=== PATIENT | female | born 1990 | race Caucasian/White ===

== ENCOUNTER 2018-12-30 04:44 | Emergency (ER) | payer BC ==
[~2018-12-30] VITALS: Ht 167.6 cm; Wt 128.4 kg
--- NOTE | 2018-12-30 04:52 | NUR ---
Pt bib [id number] from [facility] (detox center) w c/o cough x 2 days. No respiratory distress noted. Respirations even + unlabored. Denies CP/SOB. Denies fever/chills. SA02 100% room air.
[2018-12-30] MEDS ORDERED: ALBUTEROL SULFATE 2.5 MG/3 ML NEBU NEB ONE (05:15)
[2018-12-30] MEDS ORDERED: BENZONATATE 100 MG CAPSULE PO ONE (05:15)
[2018-12-30] MEDS ORDERED: BENZONATATE 100 MG CAPSULE ONE (05:19)
[2018-12-30] MEDS ORDERED: ALBUTEROL SULFATE 2.5 MG/3 ML NEBU ONE (05:25)
--- NOTE | 2018-12-30 05:41 | NUR ---
Pt states she feels much better after breathing tx.
--- NOTE | 2018-12-30 05:53 | NUR ---
Patient discharged to home in stable conditon. Written and verbal after care instructions given. Patient verbalizes understanding of instructions. Pt left ER via [employer] back to detox center. All belongings w pt. VSS. NAD noted.
[2018-12-30 05:54] VITALS: BP 116/72
== END 2018-12-30 05:56 | disposition home or self-care (01) ==
LOC: ER 04:46
DX: J40 Bronchitis, not specified as acute or chronic (principal)
CPT/HCPCS: A4663